=== PATIENT | male | born 1955 | race Caucasian/White ===

== ENCOUNTER → 2024-12-12 09:03 | Outpatient (REF) | payer MEDICARE, SELFPAY | LOC: DHSLP 09:03 | PROVIDERS: ATTENDING PHYSICIAN Internal Medicine Cardiovascular Disease; FAMILY PHYSICIAN Family Medicine | DX: G47.19 Other hypersomnia (principal); R06.83 Snoring | CPT/HCPCS: 95800 ==

== ENCOUNTER → 2024-12-27 07:08 | Outpatient (REF) | payer MEDICARE, SELFPAY | LOC: HWRCS 07:08 | PROVIDERS: ATTENDING PHYSICIAN Internal Medicine Cardiovascular Disease; FAMILY PHYSICIAN Family Medicine | DX: R55 Syncope and collapse (principal); I47.29 Other ventricular tachycardia; I47.19 Other supraventricular tachycardia | CPT/HCPCS: 78452; 93017; A9500 ==

== ENCOUNTER → 2025-02-08 09:26 | Outpatient (REF) | payer MEDICARE, SELFPAY | LOC: RAD 09:26 | PROVIDERS: ATTENDING PHYSICIAN Nurse Practitioner Family; FAMILY PHYSICIAN Family Medicine | DX: M85.89 Other specified disorders of bone density and structure, multiple sites (principal) | CPT/HCPCS: 77080 ==

== ENCOUNTER 2025-03-07 11:00 | Day surgery (SDC) | payer MEDICARE, SELFPAY ==
[2025-03-07 11:14] VITALS: BP 122/88
[2025-03-07 11:38] VITALS: BMI 28.5
[2025-03-07 17:51] VITALS: BP 131/76
[2025-03-07 18:06] VITALS: BP 126/89
--- NOTE | 2025-03-07 18:18 | ITS.CL.ABL ---
[facility] - Ablation
Ablation
Procedure Report:
Primary Physician: Dr Jeffrey Story
Primary Armoured Car Escort: Dr Pawel Little
Procedure Date: 03/07/2025
Procedure
IV drug for arrhythmia induction - Procainamide Challenge for Brugada Syndrome
ILR Implant
Patient History
See H&P for full details
Patient is a pleasant 70-year-old male with a past medical history significant for prior PE on anticoagulation, osteoarthritis, recurrent syncope, and abnormal EKG concerning for Brugada type II pattern. In the setting of patient's recurrent
syncope with borderline Brugada type II pattern, patient to undergo elective procainamide challenge for Brugada syndrome.
Method:
After informed consent was obtained, the patient was brought to the EP lab in a post-absorptive, non-sedated state. A peripheral IV was in place. Twelve-lead ECG was placed for continuous electrocardiography. V1/V2 were placed in the high
precordial positions as per Brugada amide challenge protocol. Continuous electrocardiography, blood pressure and pulse oximetry monitoring was initiated and cardioversion / defibrillator electrodes were positioned on the chest in an AP orientation.
A 'time-out' was called. Procainamide was then infused via IV at 1 g over 30 minutes. Blood pressure was obtained every 5 minutes and recorded. Baseline measurements were obtained of the patient's QRS duration, QT interval, ST segment in V1 and
V2. Measurements were obtained at 10-minute intervals and recorded. Drug infusion was completed after 30 minutes and continued monitoring occurred over a subsequent 30 minutes again with measurements obtained every 10 minutes and vital signs
obtained every 5 minutes. Patient's blood pressure, heart rate, QRS/QT/QTc and ST segments remained unchanged during drug infusion and post drug infusion measurements. Patient did not have induction of type I Brugada pattern during drug infusion.
Patient reported no symptoms during drug infusion. No significant ventricular ectopy or arrhythmia was noted during procedure. No hypotension was observed. No QRS widening was observed. Following completion of protocol at 60 minutes, final
measurements were obtained. Again, these remained without significant change from baseline measurements.
Baseline:
DC: 180 ms
QRS: 103 ms
QT: [address] amplitude: 0.[address] amplitude: 0.13 mV
10 min:
DC: 175 ms
QRS: 101 ms
QT: [address] amplitude: 0.[address] amplitude: 0.013 mV
20 min:
DC: 180 ms
QRS: 95 ms
QT: [address] amplitude: 0.[address] amplitude: 0.18 mV
30 min:
DC: 175 ms
QRS: 101 ms
QT: [address] amplitude: 0.[address] amplitude: 0.159 mV
40 min:
DC: 191 ms
QRS: 101 ms
QT: [address] amplitude: 0.[address] amplitude: 0.26 mV
50 min:
DC: 183 ms
QRS: 95 ms
QT: [address] amplitude: 0.[address] amplitude: 0.26 mV
60 min:
DC: 170 ms
QRS: 95 ms
QT: [address] amplitude: 0.[address] amplitude: 0.23 mV
Final:
DC: 183 ms
QRS: 83 ms
QT: [address] amplitude: 0.[address] amplitude: 0.203 mV
Next, we turned our attention to the ILR implant for his recurrent syncope. The left chest was prepared and draped in a sterile fashion. A 'time out' was called. Local anesthesia was injected in the subcutaneous tissue. The ILR was injected under
the skin. Topical skin adhesive was applied. Following the procedure, the patient was taken to the recovery area in stable condition. No complications were noted.
Device Data:
[employer]; Model# LINQII; Serial# [id number]
Conclusion:
Negative Procainamide Challenge - no evidence of Brugada syndrome with drug infusion.
Successful placement of a loop recorder.
Recommendations:
1. Follow-up will be arranged in the [facility] in 7-10 days for wound check.
2. Routine ILR care.
Tai Goldberg DO, FAC, RS
Clinical Cardiac Switchboard Operator
cc: Dr Jeffrey Story; Dr Pawel Little
[2025-03-07 18:24] VITALS: BP 131/89
== END 2025-03-07 18:58 | disposition home or self-care (01) ==
LOC: CATH 11:00
PROVIDERS: ATTENDING PHYSICIAN Internal Medicine Cardiovascular Disease; FAMILY PHYSICIAN Family Medicine; OTHER PHYSICIAN Internal Medicine Cardiovascular Disease
DX: R55 Syncope and collapse (principal); M19.90 Unspecified osteoarthritis, unspecified site; Z86.711 Personal history of pulmonary embolism; Z79.01 Long term (current) use of anticoagulants; I49.8 Other specified cardiac arrhythmias
CPT/HCPCS: 33285; 93799; C1764

== ENCOUNTER → 2025-03-16 10:01 | Outpatient (REF) | payer MEDICARE, SELFPAY | LOC: DHSLP 10:01 | PROVIDERS: ATTENDING PHYSICIAN Internal Medicine Critical Care Medicine; FAMILY PHYSICIAN Family Medicine | DX: G47.30 Sleep apnea, unspecified (principal); R06.83 Snoring | CPT/HCPCS: 95810 ==